=== PATIENT | female | born 1980 | race African-American/Black ===

== ENCOUNTER 2018-05-21 19:48 | Emergency (ER) | payer OTHER ==
[~2018-05-21] VITALS: Ht 167.6 cm; Wt 79.4 kg
[2018-05-21 20:45] VITALS: BP 149/89
== END 2018-05-21 22:16 | disposition home or self-care (01) ==
LOC: ER 19:48 → EDBD 19:48 → ER 22:16
DX: S16.1XXA Strain of muscle, fascia and tendon at neck level, initial encounter (principal); S43.491A Other sprain of right shoulder joint, initial encounter; V43.52XA Car driver injured in collision with other type car in traffic accident, initial encounter; Y93.89 Activity, other specified; Y99.8 Other external cause status; Y92.410 Unspecified street and highway as the place of occurrence of the external cause
CPT/HCPCS: 70450; 70486; 72125; 73030; 73562

== ENCOUNTER 2019-02-27 23:39 | Emergency (ER) | payer OTHER ==
[~2019-02-27] VITALS: Ht 167.6 cm; Wt 74.8 kg
[2019-02-27 23:59] VITALS: BP 143/89
== END 2019-02-28 01:22 | disposition left against medical advice (07) ==
LOC: EDBD 23:39 → ER 23:41
DX: R07.89 Other chest pain (principal); Z53.21 Procedure and treatment not carried out due to patient leaving prior to being seen by health care provider